=== PATIENT | female | born 1990 | race Caucasian/White ===

== ENCOUNTER 2022-01-18 06:15 | Inpatient (IN) ==
[2022-01-18] MEDS ORDERED: D5 1/2 NS 1,000 ML 1,000 ML IV ONE (06:27)
[2022-01-18] MEDS ORDERED: BETADINE SOLN ONE (06:27)
[2022-01-18] MEDS ORDERED: PITOCIN ONE (06:27)
[2022-01-18] MEDS ORDERED: D5 LR + PITOCIN 10 UNITS/L 10 UNITS/1,000 ML BAG IV ONE (06:28)
[2022-01-18] MEDS ORDERED: D5 1/2 NS 1,000 mL + PITOCIN 20 UNITS/L IV 20 UNITS/1,000 ML BAG IV ONE (06:29)
[2022-01-18] MEDS ORDERED: PHENERGAN INJ 25 MG IM PRN ×3 (07:49→15:38)
[2022-01-18] MEDS ORDERED: D5 LR + PITOCIN 10 UNITS/L 10 UNITS/1,000 ML BAG IV PRN (07:49)
[2022-01-18] MEDS ORDERED: PITOCIN IVP ONE (07:49)
[2022-01-18] MEDS ORDERED: REGLAN INJ 10 MG VIAL IVP PRN ×2 (07:49→15:16)
[2022-01-18] MEDS ORDERED: D5 1/2 NS 1,000 ML 1,000 ML IV SCH (08:00)
[2022-01-18] MEDS ORDERED: STADOL INJ IVP PRN (09:25)
[2022-01-18] MEDS ORDERED: STADOL INJ ONE (10:54)
[2022-01-18] MEDS ORDERED: REGLAN INJ 10 MG VIAL ONE (12:55)
[2022-01-18] MEDS ORDERED: LR 1,000 ML IV 1,000 ML IV ONE ×2 (12:56→13:34)
[2022-01-18] MEDS ORDERED: NS 100 ML IV 100 ML ONE ×2 (12:56→13:05)
[2022-01-18] MEDS ORDERED: DIPRIVAN VIAL 20 ML ONE (12:56)
[2022-01-18] MEDS ORDERED: ANCEF VIAL 1 GRAM ONE (12:56)
[2022-01-18] MEDS ORDERED: VERSED ONE (12:57)
[2022-01-18] MEDS ORDERED: DILAUDID INJ ONE (12:59)
[2022-01-18] MEDS ORDERED: MARCAINE SPINAL ONE (13:00)
[2022-01-18] MEDS ORDERED: PEPCID 20 MG VIAL ONE (13:05)
[2022-01-18] MEDS: ZOFRAN INJ 4 MG VIAL ONE ×2 (13:11→13:16)
[2022-01-18] MEDS ORDERED: EPHEDRINE SULFATE INJ ONE (14:02)
[2022-01-18] MEDS ORDERED: OFIRMEV IV 1000 MG VIAL 1,000 MG/100 ML VIAL IV ONE (14:17)
[2022-01-18] MEDS ORDERED: TORADOL 30 MG VIAL ONE (14:17)
[2022-01-18] MEDS ORDERED: BENADRYL INJ 50 MG VIAL IVP PRN ×2 (15:16→15:38)
[2022-01-18] MEDS ORDERED: BARHEMSYS INJ IVP PRN (15:16)
[2022-01-18] MEDS ORDERED: ZOFRAN INJ 4 MG VIAL IVP PRN ×2 (15:16→15:38)
[2022-01-18] MEDS ORDERED: MYLICON TAB 80 MG CHEW PO PRN (15:38)
[2022-01-18] MEDS ORDERED: NARCAN INJ IVP PRN (15:38)
[2022-01-18] MEDS ORDERED: ADACEL or BOOSTRIX TDaP VACCINE IM ONE (15:38)
[2022-01-18] MEDS ORDERED: PERCOCET TAB 5/325 MG PO PRN (15:38)
[2022-01-18] MEDS ORDERED: D5 1/2 NS 1,000 ML 1,000 ML with PITOCIN 20 UNITS IV SCH ×2 (15:38)
[2022-01-18] MEDS: TORADOL 30 MG VIAL IVP SCH ×2 (16:15→21:12)
[2022-01-18] MEDS ORDERED: COLACE CAP 100 MG PO SCH (21:00)
[2022-01-19] MEDS: TORADOL 30 MG VIAL IVP SCH ×2 (03:54→08:45)
[2022-01-19 04:33] LABS: HEMATOCRIT 32.1 % (36.0-47.0); HEMOGLOBIN 10.7 g/dL (12.0-16.0)
--- NOTE | 2022-01-19 07:25 | NOTE.PROBC ---
Progress Note OB-C/S Subjective Data Subjective: No complaints, decreased lochia. Tolerating regular diet. No N/V. Ambulating well. [place] draining well. Pain under good control with { }. Objective Data Result Diagrams: 01/19/22 03:20 Objective Data: CV= RRR no MRG Lungs=CTA Bilaterally Abd=(+) BS, soft, ND, appropriately tender near incision. Bandage removed. Incision clean/dry/intact, no erythema, no bleeding, no discharge. Dermabond/Stitches intact. Fundus firm/NT/ at { } cm below umbilicus. Ext= No edema, NT, No Cords. Graduated Compression Stockings/Sequential Compression Devices Bilaterally. Assessment Assessment: ready for d/c Plan (1) delivery delivered:
[2022-01-19] MEDS ORDERED: BENADRYL CAP/TAB 25 MG PO ONE (08:07)
[2022-01-19] MEDS ORDERED: BENADRYL CAP/TAB 25 MG PO NR (09:00)
[2022-01-19] MEDS ORDERED: PRENATAL PLUS PO SCH (09:00)
[2022-01-19 12:04] VITALS: BP 107/69
[2022-01-19] MEDS ORDERED: TORADOL 15 MG VIAL IVP PRN (14:24)
== END 2022-01-19 16:10 | disposition home or self-care (01) | DRG 788 ==
LOC: LD 06:15 → MED/SURG 15:37
PROVIDERS: ADMIT Obstetrics & Gynecology; ATTEND Obstetrics & Gynecology
DX: O62.0 Primary inadequate contractions; O26.892 Other specified pregnancy related conditions, second trimester; O24.410 Gestational diabetes mellitus in pregnancy, diet controlled; Z37.0 Single live birth; O33.8 Maternal care for disproportion of other origin; Z3A.39 39 weeks gestation of pregnancy; R10.84 Generalized abdominal pain